=== PATIENT | female | born 1960 | race Caucasian/White ===

== ENCOUNTER 2019-02-14 11:41 | Outpatient (CLI) | payer MEDICARE, SELFPAY ==
[2019-02-14 12:26] LABS: Abs Immature Grans 0.01 k/cumm (0.0-0.09); Absolute Basophil Count 0.03 k/cumm (0.0-0.2); Absolute Eosinophil Count 0.28 k/cumm (0.0-0.7); Absolute Lymphocyte Count 1.28 k/cumm (1.2-3.4); Absolute Monocyte Count 0.41 k/cumm (0.11-0.7); Absolute Neutrophil Count 5.56 k/cumm (1.2-6.7); Basophils % 0.4; Eosinophils % 3.7; HCT 46.7 % (36.0-46.0); HGB 15.4 g/dL (12.0-15.5); Immature Grans % 0.1; Lymphocytes % 16.9; Mean Corpuscular Hemoglobin 32.5 pg (27.0-33.0); Mean Corpuscular Volume 98.5 fL (80-95); Mean Platelet Volume 9.7 fL (8.0-11.0); Monocytes % 5.4; Neutrophils % 73.5; Platelet Count 161 x1000/uL (130-400); RBC 4.74 m/cumm (4.00-5.20); RBC Distribution Width 14.6 % (11.7-14.6); White Blood Cell Count 7.57 k/cumm (4.4-10.8)
[2019-02-14 13:44] LABS: ALT 17 U/L (12-78); AST 19 U/L (15-37); Albumin 3.5 g/dL (3.4-5.0); Alkaline Phosphatase 94 U/L (46-116); Anion Gap 10.2 mmol/L (3-11); BUN 12 mg/dL (7-18); Bilirubin, Total 0.3 mg/dL (0.2-1.0); CO2 28.8 mmol/L (21.0-32.0); CREATININE 0.83 mg/dL (0.55-1.02); Calcium 8.9 mg/dL (8.5-10.1); Chloride 104 mmol/L (98-107); Glucose 110 mg/dL (70-100); Potassium 4.2 mmol/L (3.5-5.1); Sodium 143 mmol/L (136-145); Total Protein 6.4 g/dL (6.4-8.2)
== END 2019-02-14 12:01 ==
PROVIDERS: PCP Physician Assistant; Visit Provider Internal Medicine
DX: C50.911 Malignant neoplasm of unspecified site of right female breast (principal)
CPT/HCPCS: 36415; 80053; 85025

== ENCOUNTER 2019-03-13 00:37 | Outpatient (CLI) | payer MEDICARE, SELFPAY | END 2019-03-13 00:57 | PROVIDERS: PCP Physician Assistant; Visit Provider Physician Assistant | DX: R69 Illness, unspecified (principal) ==